=== PATIENT | male | born 1965 | race Hispanic/Latino ===

== ENCOUNTER 2017-05-04 01:13 | Emergency (ER) | payer SELFPAY ==
[2017-05-04 01:44] VITALS: BP 131/68; PULSE 86; RESP 16; TEMP 99; O2SAT 99
[2017-05-04] MEDS ORDERED: Lidocaine 1% Inj (20ml) IJ ONE (02:00)
[2017-05-04] MEDS ORDERED: Lidocaine 1% Inj (20ml) ONE (02:03)
== END 2017-05-04 04:20 | disposition home or self-care (01) ==
LOC: H.ER 01:13
DX: S61.411A Laceration without foreign body of right hand, initial encounter (principal); W19.XXXA Unspecified fall, initial encounter; Y92.89 Other specified places as the place of occurrence of the external cause